=== PATIENT | female | born 1975 | race African-American/Black ===

== ENCOUNTER 2024-06-26 12:07 | Emergency (ER) | payer OTHER ==
--- OUTSIDE RECORDS SUMMARY | 2024-06-26 12:09 | XMS REPORT | Continuity of Care Document ---
Author Name Unknown Address [address] [place] [id number] [facility] Address [address] [place] [address] Care Team Providers Care Drink Waiter Name Role Phone [email or web address]_Kadiyala_S Attending Clinician Unavaila ble [email or web address]_Kadiyala_S Admitting Clinician Unavaila ble Payers Payer Name Policy Type Policy Number Effective Date Expirati on Date Source [facility] [id number] 2007 00:00:00 Encounters Start Date/Time End Date/Time Encounter Type Admission Type Attending Clinicians Care Facility Care Department Encounter ID Source 2023-03-21 00:00:00 2023-03-21 00:00:00 Outpatient GC_GCBZW_Ka diyala_S PRIV PRIV [id number] [facility] 2023-03-19 00:00:00 2023-03-19 00:00:00 Outpatient GC_GCBZW_Ka diyala_S PRIV PRIV [id number] [facility] 2023-01-23 00:00:00 2023-01-23 00:00:00 Outpatient GC_GCBZW_Ka diyala_S PRIV PRIV [id number] [facility] 2023-01-22 00:00:00 2023-01-22 00:00:00 Outpatient GC_GCBZW_Ka diyala_S PRIV PRIV [id number] [facility]
--- NOTE | 2024-06-26 14:42 | ER ---
Nurse's Notes [facility] Name: Abimbola Abel Age: 48 yrs Sex: Female : 1975 Arrival Date: 06/26/2024 Time: 12:07 Bed IW2 Private MD: Diagnosis: Other viral enteritis Presentation: 06/26 12:51 Chief complaint: Patient states: nauseated since Saturday , belching , Saturday vomited iw and having diarrhea, unable to eat or drink , I tried drinking water this morning and could not keep it down. Coronavirus screen: At this time, the client does not indicate any symptoms associated with coronavirus-19. Ebola Screen: No symptoms or risks identified at this time. Initial Sepsis Screen: Does the patient meet any 2 criteria? No. Patient's initial sepsis screen is negative. Does the patient have a suspected source of infection? No. Patient's initial sepsis screen is negative. Risk Assessment: Do you want to hurt yourself or someone else? Patient reports no desire to harm self or others. Onset of symptoms was June 22, 2024. 12:51 Method Of Arrival: Ambulatory iw 12:51 Acuity: AZUCENA 3 iw Historical: - Allergies: 12:52 No Known Allergies; iw - Home Meds: 12:52 amlodipine 5 mg tablet daily [Active]; iw - PMHx: 12:52 Hypertensive disorder; breast cancer; iw - PSHx: 12:52 mastectomy; hysterectomy; iw - Immunization history:: Adult Immunizations not up to date. - Infectious Disease History:: Denies. - Social history:: Smoking status: Patient denies any tobacco usage or history of. Vital Signs: 12:51 BP 115 / 82; Pulse 98; Resp 18; Temp 98.6; Pulse Ox 98% ; Weight 97.52 kg; Height 5 ft. iw 8 in. ; Pain 0/10; 12:51 Body Mass Index 32.69 (97.52 kg, 172.72 cm) iw 12:51 Pain Scale: Adult iw ED Course: 12:10 Patient arrived in ED. im 12:10 Gilma Gonzalez MD is Attending Physician. gb1 12:52 Triage completed. iw 12:53 Arm band placed on. iw Administered Medications: No medications were administered Outcome: 14:41 Discharge ordered by . gb1 14:46 Patient left the ED. hb Signatures: Erika Sheriff RN RN iw Ya Ohara RN RN Joellen Alexander Gina, MD MD gb1 Corrections: (The following items were deleted from the chart) 12:53 12:52 PMHx: None; travis robles
--- NOTE | 2024-06-26 14:42 | EDPHYS ---
Physician Documentation [facility] Name: Abimbola Abel Age: 48 yrs Sex: Female : 1975 Arrival Date: 06/26/2024 Time: 12:07 Bed IW2 Private MD: ED Physician Gilma Gonzalez HPI: 06/26 13:45 This 48 yrs old Black Female presents to ER via Ambulatory with complaints of gb1 Vomiting/Diarrhea. 13:45 48-year-old female with history of hypertension and breast cancer about a week ago had gb1 some [place] food for which at that time she felt unwell. She started with nausea vomiting and diarrhea and not being able to keep down foods. The last thing she ate was [employer] nuggets and an hour later she vomited. She denies any abdominal pain with the vomiting or diarrhea.. Historical: - Allergies: 12:52 No Known Allergies; iw - Home Meds: 12:52 amlodipine 5 mg tablet daily [Active]; iw - PMHx: 12:52 Hypertensive disorder; breast cancer; iw - PSHx: 12:52 mastectomy; hysterectomy; iw - Immunization history:: Adult Immunizations not up to date. - Infectious Disease History:: Denies. - Social history:: Smoking status: Patient denies any tobacco usage or history of. Exam: 13:45 Constitutional: This is a well developed, well nourished patient who is awake, alert, gb1 and in no acute distress. Head/Face: Normocephalic, atraumatic. Eyes: Pupils equal round and reactive to light, extra-ocular motions intact. Lids and lashes normal. Conjunctiva and sclera are non-icteric and not injected. Cornea within normal limits. Periorbital areas with no swelling, redness, or edema. ENT: Nares patent. No nasal discharge, no septal abnormalities noted. Tympanic membranes are normal and external auditory canals are clear. Oropharynx with no redness, swelling, or masses, exudates, or evidence of obstruction, uvula midline. Mucous membranes moist. Neck: Trachea midline, no thyromegaly or masses palpated, and no cervical lymphadenopathy. Supple, full range of motion without nuchal rigidity, or vertebral point tenderness. No Meningismus. Chest/axilla: Normal chest wall appearance and motion. Nontender with no deformity. No lesions are appreciated. Cardiovascular: Regular rate and rhythm with a normal S1 and S2. No gallops, murmurs, or rubs. Normal PMI, no JVD. No pulse deficits. Respiratory: Lungs have equal breath sounds bilaterally, clear to auscultation and percussion. No rales, rhonchi or wheezes noted. No increased work of breathing, no retractions or nasal flaring. Abdomen/GI: Soft, non-tender, with normal bowel sounds. No distension or tympany. No guarding or rebound. No evidence of tenderness throughout. Back: No spinal tenderness. No costovertebral tenderness. Full range of motion. Skin: Warm, dry with normal turgor. Normal color with no rashes, no lesions, and no evidence of cellulitis. MS/ Extremity: Pulses equal, no cyanosis. Neurovascular intact. Full, normal range of motion. Neuro: Awake and alert, GCS 15, oriented to person, place, time, and situation. Cranial nerves II-XII grossly intact. Motor strength 5/5 in all extremities. Sensory grossly intact. Cerebellar exam normal. Normal gait. Vital Signs: 12:51 BP 115 / 82; Pulse 98; Resp 18; Temp 98.6; Pulse Ox 98% ; Weight 97.52 kg; Height 5 ft. iw 8 in. ; Pain 0/10; 12:51 Body Mass Index 32.69 (97.52 kg, 172.72 cm) iw 12:51 Pain Scale: Adult iw MDM: 13:21 Medical Screening Exam initiated gb1 14:42 Data reviewed: vital signs, nurses notes. ED course: 48-year-old -Vincentian gb1 female well-appearing no peritoneal signs on exam doubt acute appendicitis or acute cholecystitis doubt any biliary obstruction I doubt acute pyelonephritis as the patient was clinically improved since arrival. Patient did tell the tech that she wanted to leave because she felt better her labs had not resulted yet however I did spend a considered amount of time with her talking about advancing her diet as tolerated and hydration. Patient was stable on my exam and I doubt any intra-abdominal acute findings that would require emergent evaluation by general surgery. Patient was discharged despite her leaving from the waiting room prior to formal discharge and after my exam.. 06/26 13:03 Order name: IV Saline Lock gb1 06/26 13:03 Order name: Labs collected and sent gb1 Administered Medications: No medications were administered Disposition Summary: 06/26/24 14:41 Discharge Ordered Notes: Location: Home gb1 Problem: an acute exacerbation gb1 Symptoms: have improved gb1 Condition: Stable gb1 Diagnosis - Other viral enteritis gb1 Followup: gb1 - With: Private Physician - When: - Reason: If symptoms return Discharge Instructions: - Discharge Summary Sheet gb1 - Viral Gastroenteritis, Adult gb1 Forms: - Medication Reconciliation Form gb1 - Antibiotic Education gb1 - Prescription Opioid Use gb1 - Patient Portal Instructions gb1 - Leadership Thank You Letter gb1 Signatures: Dispatcher [employer] Erika Bashir RN RN iw Gilma Gonzalez MD MD gb1 Corrections: (The following items were deleted from the chart) 12:53 12:52 PMHx: None; travis robles
[2024-06-26 14:53] VITALS: BP 115/82; TEMP 98.6; O2SAT 98
== END 2024-06-26 14:46 | disposition home or self-care (01) ==
LOC: ER 12:07
DX: A08.39 Other viral enteritis (principal)
CPT/HCPCS: 99281